=== PATIENT | female | born 1970 | race Caucasian/White ===

== ENCOUNTER → 2016-10-04 | Outpatient (CLI) | payer BC ==
[~2016-10-04] MED LIST: ESCITALOPRAM; IBUPROFEN800 MG PO; LISINOPRIL; LOPRESSOR; LYRICA; NO HOME MEDICATIONS; PHENERGAN 25 TA25 MG PO; TRAMADOL50 MG PO
== END ==
LOC: MC.RAD 15:02
DX: Z12.31 Encounter for screening mammogram for malignant neoplasm of breast (principal)

== ENCOUNTER 2017-03-26 23:04 | Emergency (ER) | payer BC ==
[~2017-03-26] VITALS: Ht 157.5 cm; Wt 72.7 kg
[2017-03-26] MEDS ORDERED: PRILOSEC 20MG20 MG PO (23:10)
[2017-03-26] MEDS ORDERED: ZESTORETIC 12.51 TA1 PO (23:10)
[2017-03-26] MEDS ORDERED: XANAX 0.5MG0.5 MG PO (23:11)
[2017-03-27 00:05] LABS: BASO # 0.1 (0.0-0.2); BASO % 0.9 % (0.0-2.0); EOS # 0.1 (0.0-0.7); EOS % 1.1 % (0-4.0); GRAN # 5.3 (1.4-6.5); GRAN % 56.9 % (42.2-75.2); HEMATOCRIT 42.1 % (37.0-47.0); HEMOGLOBIN 14.6 g/dl (12.5-16.0); LYMPH # 3.1 (1.2-3.4); LYMPH % 33.6 % (20.0-51.0); MEAN CELL VOLUME 90 fl (80.0-100.0); MEAN CORPUSCULAR HEMOGLOBIN 31 pg (27.0-31.0); MEAN CORPUSCULAR HGB CONC 35 g/dl (33.0-37.0); MEAN PLATELET VOLUME 9.8 fl (7.4-10.4); MONO # 0.7 (0.1-0.6); MONO % 7.2 % (1.7-9.3); PLATELET COUNT 270 K/mm3 (130-400); RED BLOOD COUNT 4.66 M/mm3 (4.10-5.30); WHITE BLOOD COUNT 9.3 K/mm3 (4.8-10.8)
[2017-03-27 00:18] LABS: ADJUSTED CALCIUM 9.2 mg/dL (8.4-10.2); ALANINE AMINOTRANSFERASE 51 U/L (9-52); ALBUMIN 4.7 gm/dL (3.5-5.0); ALCOHOL(ethanol),MEDICAL 76 mg/dL; ALKALINE PHOSPHATASE 54 U/L (50-136); ANION GAP 15 mmol/L (7-16); BILIRUBIN,TOTAL 0.5 mg/dL (0.0-1.0); BLOOD UREA NITROGEN 10 mg/dL (7-17); CALCIUM 9.8 mg/dL (8.4-10.2); CARBON DIOXIDE 21 mmol/L (22-30); CHLORIDE 105 mmol/L (98-107); CREATININE, serum 0.65 mg/dL (0.52-1.25); GLUCOSE 93 mg/dL (74-106); POTASSIUM 3.7 mmol/L (3.4-5.0); SODIUM 141 mmol/L (137-145); TOTAL PROTEIN 8.1 gm/dL (6.4-8.2)
[2017-03-27 00:20] LABS: AMPHETAMINE URINE NEGATIVE; BARBITURATES URINE NEGATIVE; BENZODIAZEPINES URINE POSITIVE; BUPRENORPHINE URINE NEGATIVE; METHADONE URINE NEGATIVE; OPIATES URINE NEGATIVE; OXYCODONE URINE NEGATIVE; PHENCYCLIDINE URINE NEGATIVE; PROPOXYPHENE URINE NEGATIVE; THC CANNABINOIDS URINE NEGATIVE; TRICYCLIC ANTIDEPRESS URINE NEGATIVE
[2017-03-27 00:21] LABS: ACETAMINOPHEN < 10 ug/mL (10-30); SALICYLATE < 1.0 mg/dL
[2017-03-27 02:20] VITALS: BP 106/61; PULSE 98; TEMP 98.3
== END 2017-03-27 02:28 | disposition home or self-care (01) ==
LOC: COL.ER 23:04
PROVIDERS: Emergency Medicine
DX: F13.10 Sedative, hypnotic or anxiolytic abuse, uncomplicated (principal); F32.9 Major depressive disorder, single episode, unspecified; F41.9 Anxiety disorder, unspecified; I10 Essential (primary) hypertension; K21.9 Gastro-esophageal reflux disease without esophagitis; G47.30 Sleep apnea, unspecified
CPT/HCPCS: J7030

== ENCOUNTER → 2017-12-31 | Outpatient (CLI) | payer BC ==
[~2017-12-31] MED LIST changes: +PRILOSEC 20MG20 MG PO; +XANAX 0.5MG0.5 MG PO; +ZESTORETIC 12.51 TA1 PO
== END ==
LOC: MC.RAD 11-22 13:00
DX: Z12.31 Encounter for screening mammogram for malignant neoplasm of breast (principal)

== ENCOUNTER → 2018-11-01 | Outpatient (CLI) | payer BC | LOC: COL.LAB 16:16 | DX: N83.8 Other noninflammatory disorders of ovary, fallopian tube and broad ligament (principal); K57.30 Diverticulosis of large intestine without perforation or abscess without bleeding; M51.36 Other intervertebral disc degeneration, lumbar region; M46.96 Unspecified inflammatory spondylopathy, lumbar region; M41.86 Other forms of scoliosis, lumbar region; Z90.710 Acquired absence of both cervix and uterus | CPT/HCPCS: Q9967 ==

== ENCOUNTER → 2019-12-02 | Outpatient (CLI) | payer BC | LOC: MC.RAD 17:54 | DX: Z12.31 Encounter for screening mammogram for malignant neoplasm of breast (principal) ==

== ENCOUNTER → 2021-05-13 | Outpatient (CLI) | payer BC | LOC: MC.RAD 09:45 | DX: Z12.31 Encounter for screening mammogram for malignant neoplasm of breast (principal) ==

== ENCOUNTER 2022-02-24 11:00 | Day surgery (SDC) | payer OTHER ==
[~2022-02-24] VITALS: Ht 160 cm; Wt 71.7 kg
[2022-02-24 12:10] VITALS: BP 144/101; PULSE 80; TEMP 97.6
--- NOTE | 2022-02-24 12:23 | NUR ---
BLOOD PRESSURE ON SECOND ATTEMPT 126/87.
[2022-02-24 14:15] VITALS: BP 120/77; PULSE 88; TEMP 98
--- NOTE | 2022-02-24 14:15 | NUR ---
PT TO BAY 8 VIA CART FROM [facility], WALKED TO CHAIR, GAIT STEADY. CALL LIGHT IN REACH, TAKES SNACK NO C/O
[2022-02-24 14:30] VITALS: BP 120/88; PULSE 77
[2022-02-24 14:45] VITALS: BP 138/92; PULSE 77
--- NOTE | 2022-02-24 14:45 | NUR ---
DR ALLEN SEE PT. IV D'CD. REVIEWED DISCHARGE INST. WITH PT ON PENDING TEST RESULTS, ACTIVITY, AND PRECAUTIONS WITH VERBAL UNDERSTANDING. PT UP IN ROOM DRESSED, DISCHARGED VIA W/C TO CAR WITH FAMILY
== END 2022-02-24 14:45 | disposition home or self-care (01) ==
LOC: SDCO 11:00
DX: K52.9 Noninfective gastroenteritis and colitis, unspecified (principal); K57.30 Diverticulosis of large intestine without perforation or abscess without bleeding; K44.9 Diaphragmatic hernia without obstruction or gangrene; K20.90 Esophagitis, unspecified without bleeding
CPT/HCPCS: J2704; J7120

== ENCOUNTER → 2024-02-28 | Outpatient (CLI) | payer OTHER | LOC: MC.RAD 14:11 | DX: Z12.31 Encounter for screening mammogram for malignant neoplasm of breast (principal); N64.89 Other specified disorders of breast ==